=== PATIENT | male | born 1955 | race Caucasian/White ===

== ENCOUNTER → 2016-11-26 | Outpatient (CLI) | payer BC ==
[~2016-11-26] MED LIST: CIALIS20 MG PO; ENDOCET 5-3251 EACH PO; NORCO 5/3251 TABLET PO; TAMSULOSIN HCL0.4 MG PO
== END | disposition home or self-care (01) ==
LOC: NUC 11-18 08:00
DX: R91.8 Other nonspecific abnormal finding of lung field (principal); K76.9 Liver disease, unspecified; J92.9 Pleural plaque without asbestos
CPT/HCPCS: 78804; 78999; A9572

== ENCOUNTER → 2017-01-08 | Outpatient (CLI) | payer BC ==
[~2017-01-08] MED LIST changes: +MELOXICAM7.5 MG PO
[2017-01-08 09:27] LABS: HEMATOCRIT 39.9 % (38.0-50.0); MCH 28.1 PG (29.0-34.0); MCHC 34.6 G/DL (30.0-36.0); MCV 81.3 FL (86-99); MEAN PLAT.VOLUME 9.6 uM^3 (9.0-12.4); PLATELET COUNT 132 K/uL (156-360); RBC DIS.WIDTH-CV 13.4 % (11.8-14.6); RBC DIS.WIDTH-SD 40.1 % (39-53); RED BLOOD COUNT 4.91 M/uL (4.00-5.50); WHITE BLOOD COUNT 7.8 K/uL (4.1-10.2)
[2017-01-08 09:43] LABS: INTER. NORMALIZED RATIO 1.1; PROTHROMBIN TIME 10.7 (9.2-11.2); PTT 34.3 (25-32)
== END | disposition home or self-care (01) ==
LOC: OPR 08:28 → EDSTATUS 09:00 → OPR 09:00
PROVIDERS: Internal Medicine Hematology & Oncology
PROC: 0FB03ZX Excision of Liver, Percutaneous Approach, Diagnostic (ICD-10-PCS; principal; 2017-01-08)
DX: R93.2 Abnormal findings on diagnostic imaging of liver and biliary tract (principal)
CPT/HCPCS: 77012; 85027; 85610; 85730; 88307; 88342 TC; J3010

== ENCOUNTER → 2017-01-15 | Outpatient (CLI) | payer BC | END | disposition home or self-care (01) | LOC: OPR 13:14 → EDSTATUS 13:30 | PROC: 0FB03ZX Excision of Liver, Percutaneous Approach, Diagnostic (ICD-10-PCS; principal; 2017-01-15) | DX: R16.0 Hepatomegaly, not elsewhere classified (principal); D3A.012 Benign carcinoid tumor of the ileum | CPT/HCPCS: 76942; 88307; 88341 TC; 88342 TC; J3010 ==

== ENCOUNTER 2017-01-29 00:55 | Inpatient (IN) | payer BC ==
[~2017-01-29] VITALS: Ht 170.2 cm; Wt 83.1 kg
[2017-01-29 01:28] LABS: HEMATOCRIT 45.8 % (38.0-50.0); MCH 26.5 PG (29.0-34.0); MCHC 32.1 G/DL (30.0-36.0); MCV 82.7 FL (86-99); MEAN PLAT.VOLUME 9.6 uM^3 (9.0-12.4); PLATELET COUNT 147 K/uL (156-360); RBC DIS.WIDTH-SD 38.6 % (39-53); RED BLOOD COUNT 5.54 M/uL (4.00-5.50)
[2017-01-29 01:29] LABS: WHITE BLOOD COUNT 5.1 K/uL (4.1-10.2)
[2017-01-29 01:40] LABS: CHLORIDE 104 mEq/L (99-109); POTASSIUM 4.7 mEq/L (3.7-5.4); SODIUM 139 mEq/L (136-147)
[2017-01-29 01:42] LABS: GLUCOSE 106 mg/dL (70-99)
[2017-01-29 01:43] LABS: ANION GAP 7 MEQ/L (2-14)
[2017-01-29 01:44] LABS: TOTAL BILIRUBIN 0.9 mg/dL (0.0-1.0)
[2017-01-29 01:46] LABS: ALKALINE PHOSPHATASE 101 IU/L (3-129); GFR ESTIMATE (CALCULATED) > 59 mL/min/
[2017-01-29 01:47] LABS: UREA NITROGEN (BUN) 14 mg/dL (9-23)
[2017-01-29 04:55] VITALS: BP 154/76
[2017-01-29 07:10] VITALS: BP 148/90
[2017-01-29 07:54] LABS: EOSINOPHIL (%) 1.9 % (0-5); EOSINOPHIL COUNT 0.1 K/uL (0-0.3); HEMATOCRIT 42.2 % (38.0-50.0); IMMATURE GRANULOCYTE (%) 0.4 % (0.0-0.7); INSTRUMENT ABS NEUTROPHIL CT 4.5 K/uL; LYMPHOCYTE COUNT 0.7 K/uL (1.0-2.8); MCH 26.8 PG (29.0-34.0); MCHC 32.2 G/DL (30.0-36.0); MCV 83.2 FL (86-99); MEAN PLAT.VOLUME 9.5 uM^3 (9.0-12.4); MONOCYTE (%) 6.5 % (3-12); MONOCYTE COUNT 0.4 K/uL (0-0.8); NEUTROPHIL (%) 78.3 % (45-76); NEUTROPHIL COUNT 4.5 K/uL (1.8-6.4); PLATELET COUNT 129 K/uL (156-360); RBC DIS.WIDTH-CV 13.1 % (11.8-14.6); RBC DIS.WIDTH-SD 39.1 % (39-53); RED BLOOD COUNT 5.07 M/uL (4.00-5.50); WHITE BLOOD COUNT 5.7 K/uL (4.1-10.2)
[2017-01-29 08:09] LABS: ANION GAP 7 MEQ/L (2-14); CHLORIDE 106 MEQ/L (99-109); GFR ESTIMATE (CALCULATED) > 59 mL/min/; GLUCOSE 117 mg/dL (70-99); POTASSIUM 4.4 MEQ/L (3.7-5.4); SAMPLE HEMOLYSIS CHECK 0; SAMPLE ICTERIC CHECK 0; SAMPLE LIPEMIA CHECK 0; SODIUM 140 MEQ/L (136-147); UREA NITROGEN (BUN) 13 mg/dL (9-23)
[2017-01-29 11:22] VITALS: BP 133/78
[2017-01-29 15:50] VITALS: BP 136/72
[2017-01-29 19:52] VITALS: BP 126/70
[2017-01-30 00:14] VITALS: BP 127/71
[2017-01-30 07:07] VITALS: BP 126/84
[2017-01-30 09:54] LABS: HEMATOCRIT 40.6 % (38.0-50.0); MCH 27.4 PG (29.0-34.0); MCHC 32.5 G/DL (30.0-36.0); MCV 84.4 FL (86-99); MEAN PLAT.VOLUME 9.4 uM^3 (9.0-12.4); PLATELET COUNT 105 K/uL (156-360); RBC DIS.WIDTH-CV 13.1 % (11.8-14.6); RBC DIS.WIDTH-SD 40.1 % (39-53); RED BLOOD COUNT 4.81 M/uL (4.00-5.50)
[2017-01-30 10:25] LABS: ANION GAP 8 MEQ/L (2-14); CHLORIDE 105 MEQ/L (99-109); GFR ESTIMATE (CALCULATED) > 59 mL/min/; GLUCOSE 93 mg/dL (70-99); SAMPLE HEMOLYSIS CHECK 0; SAMPLE ICTERIC CHECK 0; SAMPLE LIPEMIA CHECK 0; SODIUM 141 MEQ/L (136-147); UREA NITROGEN (BUN) 8 mg/dL (9-23)
[2017-01-30 11:49] VITALS: BP 132/68
== END 2017-01-30 15:49 | disposition home or self-care (01) | DRG 390 ==
LOC: EME 00:55 → 2EAST 03:00 → EDOF 03:00 → 2EAST 04:39
PROVIDERS: Physician Assistant; Surgery
DX: K56.60 Unspecified intestinal obstruction (principal); M54.9 Dorsalgia, unspecified; Z87.891 Personal history of nicotine dependence; M19.90 Unspecified osteoarthritis, unspecified site; Z85.89 Personal history of malignant neoplasm of other organs and systems; R19.03 Right lower quadrant abdominal swelling, mass and lump
CPT/HCPCS: 74000; 74176; 80048; 80048 91; 80053; 81003; 85025; 85027; 99281; 99285; J1170; J2405; J3480; J7030

== ENCOUNTER 2018-02-08 14:25 | Emergency (ER) | payer OTHER ==
[~2018-02-08] VITALS: Ht 170.2 cm; Wt 83.3 kg
[2018-02-08 14:57] LABS: HEMATOCRIT 42.8 % (38.0-50.0); HEMOGLOBIN 14.5 G/DL (12.5-16.6); MCH 28.5 PG (29.0-34.0); MCHC 33.9 G/DL (30.0-36.0); MCV 84.1 FL (86-99); PLATELET COUNT 120 K/uL (156-360); RBC DIS.WIDTH-CV 12.5 % (11.8-14.6); RBC DIS.WIDTH-SD 37.9 % (39-53); RED BLOOD COUNT 5.09 M/uL (4.00-5.50); WHITE BLOOD COUNT 4.7 K/uL (4.1-10.2)
[2018-02-08 15:10] LABS: ALBUMIN 4.3 g/dL (3.2-4.8); CHLORIDE 99 mEq/L (99-109); POTASSIUM 3.8 mEq/L (3.7-5.4); SODIUM 140 mEq/L (136-147)
[2018-02-08 15:13] LABS: GLUCOSE 113 mg/dL (70-99); TOTAL PROTEIN 7.6 g/dL (6.4-8.3)
[2018-02-08 15:14] LABS: TOTAL BILIRUBIN 3.2 mg/dL (0.0-1.0)
[2018-02-08 15:16] LABS: ALKALINE PHOSPHATASE 308 IU/L (3-129); CREATININE 0.8 mg/dL (0.6-1.3); GFR ESTIMATE (CALCULATED) > 59 mL/min/ (58.99-99999)
[2018-02-08 15:17] LABS: UREA NITROGEN (BUN) 10 mg/dL (9-23)
[2018-02-08 15:18] LABS: AST (GOT) 59 IU/L (2-34)
[2018-02-08 15:19] LABS: ALT (GPT) 101 IU/L (3-49)
[2018-02-08 16:21] LABS: INTER. NORMALIZED RATIO 1.3
[2018-02-08 16:23] LABS: PTT 47.6 SEC (25-37)
[2018-02-08 17:25] LABS: APPEARANCE CLEAR ((CLEAR)); BILIRUBIN NEGATIVE; BLOOD NEGATIVE; COLOR AMBER ((YELLOW)); GLUCOSE (STRIP) NEGATIVE; KETONES 5; LEUKOCYTES NEGATIVE; NITRITE NEGATIVE; PROTEIN (STRIP) NEGATIVE; SPECIFIC GRAVITY 1.019 (1.000-1.030); UCUL ADDED? NO
[2018-02-08 17:43] LABS: LIPASE 746 U/L (1.0-51.0)
[2018-02-09 00:28] VITALS: BP 127/74
== END 2018-02-09 00:21 | disposition short-term general hospital (02) ==
LOC: EME 14:25
PROVIDERS: Nurse Practitioner Family
DX: K85.90 Acute pancreatitis without necrosis or infection, unspecified (principal); K80.20 Calculus of gallbladder without cholecystitis without obstruction; C22.9 Malignant neoplasm of liver, not specified as primary or secondary; Z98.890 Other specified postprocedural states
CPT/HCPCS: 76705; 80053; 81003; 83690; 85027; 85610; 85730; 93005; 99281; 99285; J1200; J2270; J2765; J3010; J7030; S0028

== ENCOUNTER 2018-03-03 08:00 | Day surgery (SDC) | payer OTHER ==
[~2018-03-03] VITALS: Ht 170.2 cm; Wt 81.6 kg
[~2018-03-03 08:00] MED LIST changes: +FLOMAX0.4 MG PO; +IBUPROFEN800 MG PO; +PHENERGAN12.5 MG PR; +ZOFRAN4 MG PO
[2018-03-03 08:25] VITALS: BP 138/69
[2018-03-03] MEDS ORDERED: MOTRIN600 MG PO (13:20)
[2018-03-03 16:09] VITALS: BP 134/78
== END 2018-03-03 16:20 | disposition home or self-care (01) ==
LOC: SDC 08:00
DX: K80.10 Calculus of gallbladder with chronic cholecystitis without obstruction (principal); C78.7 Secondary malignant neoplasm of liver and intrahepatic bile duct; C7A.8 Other malignant neuroendocrine tumors; N40.0 Benign prostatic hyperplasia without lower urinary tract symptoms; Z87.891 Personal history of nicotine dependence
CPT/HCPCS: 74300; 88304; J0131; J1100; J1170; J1885; J2405; J2765; J3010; S0020; S0074